=== PATIENT | female | born 1995 | race Caucasian/White ===

== ENCOUNTER 2023-07-17 11:28 | Outpatient (REF) | payer BC, SELFPAY ==
[2023-07-17 13:17] LABS: Influenza Virus A Antigen Negative; Influenza Virus B Antigen Positive; Internal Control Within Normal Limits
[2023-07-17 16:38] LABS: SARS-CoV-2 NAA INCONCLUSIVE (NOT DETECTE)
== END 2023-07-17 11:29 | disposition home or self-care (01) ==
LOC: LAB 11:28
PROVIDERS: PCP Family Medicine; Visit Provider Nurse Practitioner Family
DX: J06.9 Acute upper respiratory infection, unspecified (principal)
CPT/HCPCS: 87635; 87804